=== PATIENT | female | born 1985 | race Caucasian/White ===

== ENCOUNTER 2019-03-10 10:16 | Outpatient (CLI) | payer SELFPAY ==
--- NOTE | 2019-03-10 10:26 | XR_ITS ---
WS: [id number] CHEST 2 VIEWS HISTORY: COUGH/TOBACCO ABUSE/dyspnea COMPARISON: 01/16/2015 Lungs: Hyperexpanded lungs with thickened interstitial markings centrally. No pneumonia. Cardiac size: Normal. Mediastinum/Aorta: Normal mediastinum. Bones: Normal. XR/XR chest 2V* [id number] IMPRESSION: Interstitial thickening centrally and mild hyperexpansion. Consider acute bronc hiolitis or exacerbation of reactive airways disease. No pneumonia.
== END 2019-03-10 10:17 | disposition home or self-care (01) ==
LOC: RAD 10:20
PROVIDERS: Family Provider Nurse Practitioner Family; PCP Nurse Practitioner Family; Visit Provider Nurse Practitioner Family
DX: Z72.0 Tobacco use (principal); R05 Cough; R06.00 Dyspnea, unspecified
CPT/HCPCS: 71046

== ENCOUNTER 2019-12-11 10:00 | Emergency (ER) | payer SELFPAY ==
[2019-12-11 10:14] VITALS: BP 110/59; PULSE 101; RESP 20; TEMP 37.1; O2SAT 97; BMI 17.9
--- NOTE | 2019-12-11 10:14 | XR_ITS ---
WS: [id number] XR chest 1V portable [id number] REASON FOR EXAM: dyspnea/cough FINDINGS: The chest is unchanged compared to previous examination of 03/10/2019. The heart and mediastinum are within normal limits. No active pulmonary parenchymal or pleural diseas e is noted. The bony thorax is unremarkable. XR/XR chest 1V portable [id number] IMPRESSION: No acute chest abnormality.
--- NOTE | 2019-12-11 10:15 | W.ED.SOB ---
HPI - SOB/Dyspnea General: Chief Complaint: Shortness of Breath/Dyspnea Stated Complaint: FEVER, SOB, R SIDE PAIN Time Seen by Provider: 12/11/19 10:08 History of Present Illness: HPI Narrative: 34-year-old female presents emergency room with complaint of shortness of breath fever and cough. Began over the last couple of days. Worse last night she did use an albuterol inhaler she has for her asthma that did not seem to help very much. She is hyperventilating on my arrival in the room. She denies any other long-term medical problems she has had some loose stools. Cough has become quite harsh to the point where she is pulled some muscles and has some point tenderness on the right side of her ribs. MD elicited complaint: shortness of breath and cough Pertinent past history: asthma Onset (ago): day(s) Context: recent illness Timing: constant Severity: moderate Exacerbating factors: coughing Relieving factors: rest Known history of: asthma Associated symptoms: Reports cough; Deny abdominal pain, chest congestion, chest pain, diaphoresis, dizziness, extremity pain, fever(s), hemoptysis, lightheadedness, myalgias, nausea, orthopnea, palpitations, paresthesias, polydipsia, polyuria, rash, sense of impending doom, syncope, vomiting or other Treatment prior to arrival: bronchodilator Review of Systems Const: Denies: fever(s) or diaphoresis ENMT: Denies: throat pain, ear or mastoid pain, nasal discharge or nasal congestion Card: Denies: chest pain, palpitations, lightheadedness, syncope or orthopnea Resp: Denies: hemoptysis or chest congestion GI: Denies: abdominal pain, nausea or vomiting : Denies: flank pain, difficulty voiding, dysuria, urinary frequency or urinary urgency Musc: Denies: extremity pain Skin/Breast: Denies: rash or pruritus Neuro: Denies: dizziness Endo: Denies: polyuria or polydipsia PFS ED PFSH: Medical History (Updated 12/11/19 @ 10:55 by Sam Chung DO) Asthma Physical Exam Const: COMMON NORMALS: no acute distress GENERAL APPEARANCE: cooperative and comfortable ORIENTATION/CONSCIOUSNESS: Yes awake, Yes oriented to person, Yes oriented to place and Yes oriented to time HENMT: COMMON NORMALS: normocephalic, atraumatic and hearing grossly normal bilaterally HEAD & SCALP: normocephalic and atraumatic Neck/C-Spine: COMMON NORMALS: no JVD Resp: COMMON NORMALS: normal respiratory effort, No retractions and No use of accessory muscles AUSCULTATION: wheezes (Mild) Cardio: COMMON NORMALS: no JVD, regular rate, regular rhythm and No murmurs present (Cardio) RATE: regular rate RHYTHM: regular rhythm GI: COMMON NORMALS: Soft to palpation and No hepatosplenomegaly present AUSCULTATION: Yes normoactive bowel sounds PALPATION: Yes Soft to palpation, No Tenderness to palpation present (GI), No Guarding due to palpation present (GI) and Yes No hepatosplenomegaly present Extremity: COMMON NORMALS: normal to inspection, capillary refill normal, no clubbing, cyanosis or edema, no calf tenderness and no pedal edema Neuro: SENSORIUM/ORIENTATION: Yes oriented to person, Yes oriented to place and Yes oriented to time Skin: COMMON NORMALS: no rashes or lesions noted GENERAL SKIN EXAM: no rashes or lesions noted Course Vital Signs: Vital signs: Vital Signs Temperature 98.7 F 12/11/19 10:14 Pulse Rate 98 12/11/19 11:22 Respiratory Rate 16 12/11/19 11:22 Blood Pressure 116/77 12/11/19 11:22 Pulse Oximetry 95 12/11/19 11:22 MDM - SOB/Dyspnea MDM Narrative: Medical decision making narrative: Patient is doing well respiratory rate settled down to normal she was hyperventilating when she first came in. We did swab her for COVID recommend she maintain quarantine until results are back. Continue to use albuterol PRN return if has further problems. Lab Data: Labs: Lab Results 12/11/19 Range/Units 10:34 Specimen Type Arterial Sample Site Radial, left ABG pH 7.52 H (7.35-7.45) ABG pCO2 25.9 L (35-45) mmHg ABG pO2 70.2 L (80.0-100.0) mmH g ABG HCO3 20.9 L (22-26) mmol/L ABG O2 Saturation 97.6 ABG Base Excess -0.5 (-2.0-2.0) mmol/ L Pradeep Test Pos A-a O2 Gradient 6.2 (5-10) mmHg Hematocrit 44.2 (37-47) % Hgb O2 Saturation 91.9 L (95-100) % Carboxyhemoglobin 5.0 (0.4-20.1) %THgb Methemoglobin 0.9 (0.4-1.5) % Total Hemoglobin 14.4 (12-16) g/dL Sodium 138.0 (131-143) mmol/L Potassium 3.6 (3.5-5.0) mmol/L Glucose 92.0 (70-115) mg/dL Ionized Calcium 1.2 (1.1-1.4) mmol/L O2 Delivery Device Room air FiO2 21.0 % Textile Machine Operator ID Cak Discharge Plan Discharge Patient Disposition: Home Clinical Impression: Asthma, Viral URI Condition: Stable Prescriptions: No Action No Known Home Medications RF: 0 Discharge Orders: Discharge Order (Routine); Ordered 12/11/19 Ordered By: Sam Chung Referrals: CLARITA HICKS FNP [Primary Care Provider] - Deb Ramirez FNP [Family Provider] - Discharge Diet: Usual diet Discharge Activity: Increase activity as tolerated Discharge Date/Time: 12/11/19 11:20 Coding Level of Care Code ED Barrel Stave Inspector for Chg Fwd Exam Comprehensive
[2019-12-11 10:45] LABS: ABG PCO2 25.9 mmHg (35-45); ABG PH Result 7.52 (7.35-7.45); Alveolar-Arterial Oxygen Gradi 6.2 mmHg (5-10); Arterial Blood Gas Hematocrit 44.2 % (37-47); Base Excess ABG -0.5 mmol/L (-2.0-2.0); Blood Gas Allen Test Pos; Blood Gas Operator Identificat CAK; Blood Gas Sample Site Radial, left; Blood Gas Sample Type Arterial; HCO3 ABG 20.9 mmol/L (22-26); HGB O2 Sat 91.9 % (95-100); Ionized Calcium Level - ABG 1.2 mmol/L (1.1-1.4); Methemoglobin 0.9 % (0.4-1.5); Oxygen Device ROOM AIR; Oxygen Saturation ABG 97.6; PO2 ABG 70.2 mmHg (80.0-100.0); Potassium Level - ABG 3.6 mmol/L (3.5-5.0); Total Hemoglobin 14.4 g/dL (12-16)
[2019-12-11 11:22] VITALS: BP 116/77; PULSE 98; RESP 16; O2SAT 95
[2019-12-13 01:32] LABS: Quest SARS-CoV-2 RNA NOT DETECTED (NOT DETECTED)
--- NOTE | 2019-12-13 13:55 | PC.NURSE ---
Pt called and notified of negative COVID result.
== END 2019-12-11 11:20 | disposition home or self-care (01) ==
PROVIDERS: Emergency Provider Family Medicine; Family Provider Nurse Practitioner Family; PCP Nurse Practitioner Family
DX: J06.9 Acute upper respiratory infection, unspecified (principal)
CPT/HCPCS: 12345; 36600; 71045; 80051; 82810; 83986; 87635; 99281; 99283

== ENCOUNTER 2022-07-23 16:14 | Emergency (ER) | payer MEDICAID, SELFPAY ==
[2022-07-23 16:19] VITALS: BP 109/76; PULSE 78; RESP 15; TEMP 36.7; O2SAT 96; BMI 17.3
--- NOTE | 2022-07-23 16:31 | USR_ITS ---
PROCEDURE INFORMATION: Exam: US Nonobstetric Pelvis; Complete Exam date and time: 07/23/2022 5:08 PM Age: 37 years old Clinical indication: Pelvic pain; Additional info: R pelvic pain TECHNIQUE: Imaging protocol: Transabdominal pelvic nonobstetric ultrasound. Complete exam. Real time ultrasound with image documentation. COMPARISON: US pelv w/transvag [id number] 01/10/2017 11:24 AM FINDINGS: Uterus: Uterus is normal. Endometrial stripe is normal. Right ovary/adnexa: Ovary is normal. No mass. Normal blood flow. Left ovary/adnexa: Ovary is normal. No mass. Normal blood flow. Intraperitoneal space: No intraperitoneal fluid. Urinary bladder: Normal. US/US pelv w/transvag [id number] IMPRESSION: No acute findings.
--- NOTE | 2022-07-23 16:33 | W.ED.ABDPA2 ---
Documented by User: Sam Chung DO 07/24/22 06:00 HPI - Abdominal Pain General: Chief Complaint: Abdominal Pain Stated Complaint: abd pains Time Seen by Provider: 07/23/22 16:25 Source: patient Mode of arrival: ambulatory History of Present Illness: 37-year-old female presents emergency room complaint of right-sided pelvic pain and cramping. Menstrual period began 2 days ago her menstrual periods are usually very regular. She has a history of ovarian cyst had one removed by laparoscopy in the past. She denies any fever sweats chills dysuria urgency or frequency heme dysuria no diarrhea she did have an episode of nausea and single episode of vomiting this morning. MD elicited complaint: other (Right pelvic pain) Pertinent past history: other Onset (ago): day(s) Pain Consistency: constant Location: Pelvis Severity: moderate Quality: cramping Exacerbating factors: nothing Relieving factors: nothing Associated Symptoms: Reports bloating and GI cramping; Denies anorexia, belching, change in bowel habits, change in stool character, chills, coffee ground emesis, constipation, diarrhea, dyspepsia, dysuria, excessive flatus, fever(s), heartburn, hematochezia, hematuria, hematemesis, fecal incontinence, loose stools, melena, nausea, poor appetite, syncope and vomiting Review of Systems Const: Denies: fever(s), chills, fatigue or malaise ENMT: Denies: throat pain, ear or mastoid pain, nasal discharge or nasal congestion Card: Denies: chest pain or syncope Resp: Denies: dyspnea, productive cough or non-productive cough GI: Reports: abdominal pain (Right-sided pelvic), bloating and GI cramping; Denies: nausea, vomiting, hematemesis, coffee ground emesis, heartburn, diarrhea, constipation, belching, excessive flatus, fecal incontinence, change in bowel habits, change in stool character, hematochezia or melena : Denies: dysuria, urinary frequency, urinary urgency or hematuria Skin/Breast: Denies: rash or pruritus [facility] ED PFSH: Medical History (Updated 07/23/22 @ 18:10 by Marshall Greenberg MD) Asthma Social History Smoking and tobacco status: current every day smoker cigarettes Packs smoked per day: 0.5 Alcohol intake: never Desire information about alcohol rehabilitation?: No Counseling given: No Substance/Drug Use: never Desire information about substance/drug rehabilitation?: No Counseling given: No Lives independently: Yes Household members: spouse Housing: House Marital status: Number of children: 2 Physical Exam Const: GENERAL APPEARANCE: cooperative and comfortable ORIENTATION/CONSCIOUSNESS: Yes awake, Yes oriented to person, Yes oriented to place and Yes oriented to time HENMT: COMMON NORMALS: normocephalic, atraumatic and hearing grossly normal bilaterally HEAD & SCALP: normocephalic and atraumatic Resp: COMMON NORMALS: normal respiratory effort, No retractions, No use of accessory muscles and clear to auscultation bilaterally AUSCULTATION: clear to auscultation bilaterally Cardio: COMMON NORMALS: regular rate, regular rhythm and No murmurs present (Cardio) RATE: regular rate RHYTHM: regular rhythm GI: COMMON NORMALS: No hepatosplenomegaly present AUSCULTATION: Yes normoactive bowel sounds PALPATION: Yes Tenderness to palpation present (GI) (Right pelvis), No Guarding due to palpation present (GI) and Yes No hepatosplenomegaly present Extremity: COMMON NORMALS: normal to inspection, capillary refill normal, no clubbing, cyanosis or edema, no calf tenderness and no pedal edema Neuro: SENSORIUM/ORIENTATION: Yes oriented to person, Yes oriented to place and Yes oriented to time Skin: COMMON NORMALS: no rashes or lesions noted GENERAL SKIN EXAM: no rashes or lesions noted Course Vital Signs: Vital signs: Vital Signs Temperature 98.0 F 07/23/22 16:19 Pulse Rate 78 07/23/22 16:19 Respiratory Rate 18 07/23/22 16:59 Blood Pressure 109/76 07/23/22 16:19 Pulse Oximetry 96 07/23/22 16:19 Oxygen Delivery Me thod Room Air 07/23/22 16:19 MDM - Abdominal Pain Medical Decision Making Read of pelvic ultrasound pending at change of shift. Care signed out to Dr. Greenberg at change of shift. See final notes for diagnosis and disposition. Patient presents with abdominal pain her pain is much improved here exam is benign ultrasound blood works normal she has no signs of appendicitis or acute surgical issues she has no signs of ovarian torsion she is stable for discharge she is to follow-up with PCP and return if worsening. Lab Data 07/23/22 16:51 07/23/22 16:51 Labs/Radiology: Radiology Impressions Pelvic/Transvag US 07/23/22 16:31 IMPRESSION: No acute findings. Laboratory Results WBC 8.5 10^3/uL (4.0-10.0) 07/23/22 16:51 RBC 4.93 10^6/uL (4.1-5.3) 07/23/22 16:51 Hgb 15.7 g/dL (11.5-15.3) H 07/23/22 16:51 Hct 46.4 % (37.0-47.0) 07/23/22 16:51 MCV 94.1 fl (81-99) 07/23/22 16:51 MCH 31.8 pg (28.0-34.0) 07/23/22 16:51 MCHC 33.8 g/dL (30.0-36.0) 07/23/22 16:51 RDW 12.5 % (12.1-15.1) 07/23/22 16:51 Plt Count 321 10^3/cmm (130-400) 07/23/22 16:51 MPV 10.0 fL (7.4-10.4) 07/23/22 16:51 Neut % (Auto) 61.0 % 07/23/22 16:51 Lymph % (Auto) 32.2 % 07/23/22 16:51 [place] % (Auto) 5.6 % 07/23/22 16:51 Eos % (Auto) 0.4 % 07/23/22 16:51 Baso % (Auto) 0.6 % 07/23/22 16:51 Neut # (Auto) 5.18 10^3/uL (1.8-7.7) 07/23/22 16:51 Lymph # (Auto) 2.7 10^3/uL (0.8-4.8) 07/23/22 16:51 [place] # (Auto) 0.5 10^3/uL (0.2-0.9) 07/23/22 16:51 Eos # (Auto) 0.0 10^3/uL (0.0-0.8) 07/23/22 16:51 Baso # (Auto) 0.1 10^3/uL (0.0-0.1) 07/23/22 16:51 Nucleated RBC % (auto) 0 % 07/23/22 16:51 Nucleated RBCs # 0.0 /100WBC 07/23/22 16:51 Sodium 140 mmol/L (136-145) 07/23/22 16:51 Potassium 4.1 mmol/L (3.5-5.1) 07/23/22 16:51 Chloride 104 mmol/L (98-107) 07/23/22 16:51 Carbon Dioxide 23 mmol/L (22-29) 07/23/22 16:51 Anion Gap 17.1 (5-19) 07/23/22 16:51 BUN 10 mg/dL (6-20) 07/23/22 16:51 Creatinine 0.5 mg/dL (0.5-0.9) 07/23/22 16:51 GFR Calculation 140.4 mL/min (90-130) H 07/23/22 16:51 Glucose 87 mg/dL (65-115) 07/23/22 16:51 Calculated Osmolality 288 mOsm/kg (285-295) 07/23/22 16:51 Calcium 9.3 mg/dL (8.5-10.5) 07/23/22 16:51 Total Bilirubin 0.5 mg/dL (0.15-1.2) 07/23/22 16:51 AST 15 U/L (0-32) 07/23/22 16:51 ALT < 5 U/L (0-33) 07/23/22 16:51 Alkaline Phosphatase 60 U/L (35-105) 07/23/22 16:51 Total Protein 8.2 g/dL (6.6-8.7) 07/23/22 16:51 Albumin 5.0 g/dL (3.5-5.2) 07/23/22 16:51 Globulin 3.2 g/dL (1.3-4.6) 07/23/22 16:51 HCG, Qual Negative (Negative) 07/23/22 16:51 Urine Color Yellow (Yellow) 07/23/22 16:51 Urine Appearance Clear (CLEAR) 07/23/22 16:51 Urine pH 6.5 (5-7) 05/18/23 16:51 Ur Specific [place] 1.015 (1.005-1.030) 07/23/22 16:51 Urine Protein Neg (Negative) 07/23/22 16:51 Urine Glucose (UA) Norm (Normal) 07/23/22 16:51 Urine Ketones Negative (Negative) 07/23/22 16:51 Urine Blood 3+ (Negative) H 07/23/22 16:51 Urine Nitrate Negative (Negative) 07/23/22 16:51 Urine Bilirubin Neg (Negative) 07/23/22 16:51 Urine Urobilinogen Neg mg/dL (Negative) 07/23/22 16:51 Ur Leukocyte Esterase Negative (Negative) 07/23/22 16:51 Urine RBC Rare /hpf (0-2) 07/23/22 16:51 Urine WBC None /hpf (0-5) 07/23/22 16:51 Ur Squamous Epith Cells 0-4 /hpf (0-5) H 07/23/22 16:51 Amorphous Sediment Not Reportable 07/23/22 16:51 Urine Bacteria None /hpf (NONE) 07/23/22 16:51 Discharge Plan Discharge Patient Disposition: Home Clinical Impression: Abdominal pain Condition: Stable Prescriptions: New hydrocodone-acetaminophen 5-325 mg tablet 1 tab PO Q6H PRN (Reason: pain) Qty: 14 0RF ondansetron 4 mg tablet,disintegrating 4 mg PO Q6H PRN (Reason: nausea and vomiting) Qty: 14 0RF No Action amoxicillin 875 mg tablet 875 mg PO BID Qty: 20 0RF albuterol sulfate 2.5 mg /3 mL (0.083 %) solution for nebulization 2.5 mg INHALATION QID PRN (Reason: shortness of breath or wheezing) 7 Days Qty: 75 0RF azithromycin [Zithromax Z-Rory] 250 mg tablet See Rx Instructions PO .COMPLEX Qty: 6 0RF Rx Instructions: take 500 mg today (day 1), then 250 mg for 4 days (days 2-5) PO prednisone 10 mg tablets,dose pack See Rx Instructions PO PER PKG DIR Qty: 21 0RF Rx Instructions: PO PER PKG DIR may use loose pills promethazine-DM 6.25-15 mg/5 mL syrup 5 ml PO Q6H PRN (Reason: cough) 7 Days Qty: 118 0RF Discharge Orders: Discharge ED (Routine); Ordered 07/23/22 Ordered By: Marshall Greenberg Referrals: Fiona Rivero [employer] LOUNGE ATTENDANT [Primary Care Provider] - 1-3 days Discharge Diet: Advance as tolerated Discharge Activity: Resume usual activity Patient Instructions: Abdominal Pain (ED), Opioid Safety Coding Level of Care Code ED Wharf Tally Clerk for Chg Fwd Documented by User: Marshall Greenberg MD 07/23/22 18:23 HPI - Abdominal Pain General: Chief Complaint: Abdominal Pain Stated Complaint: abd pains Time Seen by Provider: 07/23/22 16:25 [facility] ED PFSH: Medical History (Updated 07/23/22 @ 18:10 by Marshall Greenberg MD) Asthma Social History Smoking and tobacco status: current every day smoker cigarettes Packs smoked per day: 0.5 Alcohol intake: never Desire information about alcohol rehabilitation?: No Counseling given: No Substance/Drug Use: never Desire information about substance/drug rehabilitation?: No Counseling given: No Lives independently: Yes Household members: spouse Housing: House Marital status: Number of children: 2 Course Vital Signs: Vital signs: Vital Signs Temperature 98.0 F 07/23/22 16:19 Pulse Rate 78 07/23/22 16:19 Respiratory Rate 18 07/23/22 16:59 Blood Pressure 109/76 07/23/22 16:19 Pulse Oximetry 96 07/23/22 16:19 Oxygen Delivery Me thod Room Air 07/23/22 16:19 MDM - Abdominal Pain Medical Decision Making Patient presents with abdominal pain her pain is much improved here exam is benign ultrasound blood works normal she has no signs of appendicitis or acute surgical issues she has no signs of ovarian torsion she is stable for discharge she is to follow-up with PCP and return if worsening. Medical Records I reviewed the patient's medical records. Lab Data I reviewed the patient's lab results. 07/23/22 16:51 07/23/22 16:51 Labs/Radiology: Radiology Impressions Pelvic/Transvag US 07/23/22 16:31 IMPRESSION: No acute findings. Laboratory Results WBC 8.5 10^3/uL (4.0-10.0) 07/23/22 16:51 RBC 4.93 10^6/uL (4.1-5.3) 07/23/22 16:51 Hgb 15.7 g/dL (11.5-15.3) H 07/23/22 16:51 Hct 46.4 % (37.0-47.0) 07/23/22 16:51 MCV 94.1 fl (81-99) 07/23/22 16:51 MCH 31.8 pg (28.0-34.0) 07/23/22 16:51 MCHC 33.8 g/dL (30.0-36.0) 07/23/22 16:51 RDW 12.5 % (12.1-15.1) 07/23/22 16:51 Plt Count 321 10^3/cmm (130-400) 07/23/22 16:51 MPV 10.0 fL (7.4-10.4) 07/23/22 16:51 Neut % (Auto) 61.0 % 07/23/22 16:51 Lymph % (Auto) 32.2 % 07/23/22 16:51 [place] % (Auto) 5.6 % 07/23/22 16:51 Eos % (Auto) 0.4 % 07/23/22 16:51 Baso % (Auto) 0.6 % 07/23/22 16:51 Neut # (Auto) 5.18 10^3/uL (1.8-7.7) 07/23/22 16:51 Lymph # (Auto) 2.7 10^3/uL (0.8-4.8) 07/23/22 16:51 [place] # (Auto) 0.5 10^3/uL (0.2-0.9) 07/23/22 16:51 Eos # (Auto) 0.0 10^3/uL (0.0-0.8) 07/23/22 16:51 Baso # (Auto) 0.1 10^3/uL (0.0-0.1) 07/23/22 16:51 Nucleated RBC % (auto) 0 % 07/23/22 16:51 Nucleated RBCs # 0.0 /100WBC 07/23/22 16:51 Sodium 140 mmol/L (136-145) 07/23/22 16:51 Potassium 4.1 mmol/L (3.5-5.1) 07/23/22 16:51 Chloride 104 mmol/L (98-107) 07/23/22 16:51 Carbon Dioxide 23 mmol/L (22-29) 07/23/22 16:51 Anion Gap 17.1 (5-19) 07/23/22 16:51 BUN 10 mg/dL (6-20) 07/23/22 16:51 Creatinine 0.5 mg/dL (0.5-0.9) 07/23/22 16:51 GFR Calculation 140.4 mL/min (90-130) H 07/23/22 16:51 Glucose 87 mg/dL (65-115) 07/23/22 16:51 Calculated Osmolality 288 mOsm/kg (285-295) 07/23/22 16:51 Calcium 9.3 mg/dL (8.5-10.5) 07/23/22 16:51 Total Bilirubin 0.5 mg/dL (0.15-1.2) 07/23/22 16:51 AST 15 U/L (0-32) 07/23/22 16:51 ALT < 5 U/L (0-33) 07/23/22 16:51 Alkaline Phosphatase 60 U/L (35-105) 07/23/22 16:51 Total Protein 8.2 g/dL (6.6-8.7) 07/23/22 16:51 Albumin 5.0 g/dL (3.5-5.2) 07/23/22 16:51 Globulin 3.2 g/dL (1.3-4.6) 07/23/22 16:51 HCG, Qual Negative (Negative) 07/23/22 16:51 Urine Color Yellow (Yellow) 07/23/22 16:51 Urine Appearance Clear (CLEAR) 07/23/22 16:51 Urine pH 6.5 (5-7) 07/23/22 16:51 Ur Specific [place] 1.015 (1.005-1.030) 07/23/22 16:51 Urine Protein Neg (Negative) 07/23/22 16:51 Urine Glucose (UA) Norm (Normal) 07/23/22 16:51 Urine Ketones Negative (Negative) 07/23/22 16:51 Urine Blood 3+ (Negative) H 07/23/22 16:51 Urine Nitrate Negative (Negative) 07/23/22 16:51 Urine Bilirubin Neg (Negative) 07/23/22 16:51 Urine Urobilinogen Neg mg/dL (Negative) 07/23/22 16:51 Ur Leukocyte Esterase Negative (Negative) 07/23/22 16:51 Urine RBC Rare /hpf (0-2) 07/23/22 16:51 Urine WBC None /hpf (0-5) 07/23/22 16:51 Ur Squamous Epith Cells 0-4 /hpf (0-5) H 07/23/22 16:51 Amorphous Sediment Not Reportable 07/23/22 16:51 Urine Bacteria None /hpf (NONE) 07/23/22 16:51 Discharge Plan Discharge Patient Disposition: Home Clinical Impression: Abdominal pain Condition: Stable Prescriptions: New hydrocodone-acetaminophen 5-325 mg tablet 1 tab PO Q6H PRN (Reason: pain) Qty: 14 0RF ondansetron 4 mg tablet,disintegrating 4 mg PO Q6H PRN (Reason: nausea and vomiting) Qty: 14 0RF No Action amoxicillin 875 mg tablet 875 mg PO BID Qty: 20 0RF albuterol sulfate 2.5 mg /3 mL (0.083 %) solution for nebulization 2.5 mg INHALATION QID PRN (Reason: shortness of breath or wheezing) 7 Days Qty: 75 0RF azithromycin [Zithromax Z-Rory] 250 mg tablet See Rx Instructions PO .COMPLEX Qty: 6 0RF Rx Instructions: take 500 mg today (day 1), then 250 mg for 4 days (days 2-5) PO prednisone 10 mg tablets,dose pack See Rx Instructions PO PER PKG DIR Qty: 21 0RF Rx Instructions: PO PER PKG DIR may use loose pills promethazine-DM 6.25-15 mg/5 mL syrup 5 ml PO Q6H PRN (Reason: cough) 7 Days Qty: 118 0RF Discharge Orders: Discharge ED (Routine); Ordered 07/23/22 Ordered By: Marshall Greenberg Referrals: Fiona Rivero, [employer] LOUNGE ATTENDANT [Primary Care Provider] - 1-3 days Discharge Diet: Advance as tolerated Discharge Activity: Resume usual activity Patient Instructions: Abdominal Pain (ED), Opioid Safety Coding Level of Care Code ED Wharf Tally Clerk for Mariana Peters
[2022-07-23] MEDS: sodium chloride 0.9% 1,000 ML 999 ML IV (16:54)
[2022-07-23] MEDS: ketorolac 30 mg/mL INJ IVP (16:56)
[2022-07-23] MEDS: ondansetron 2 mg/ML SDV 2 mL 4 MG IVP (16:57)
[2022-07-23 16:59] VITALS: RESP 18
[2022-07-23] MEDS: morphine 4 mg/mL SDV 1 mL IVP (16:59)
[2022-07-23 17:14] LABS: Basophils # 0.1 10^3/uL (0.0-0.1); Basophils % 0.6 %; Eosinophils % 0.4 %; Hematocrit 46.4 % (37.0-47.0); Hemoglobin 15.7 g/dL (11.5-15.3); Lymphocytes # 2.7 10^3/uL (0.8-4.8); Lymphocytes % 32.2 %; Mean Corpuscular HGB Conc 33.8 g/dL (30.0-36.0); Mean Corpuscular Hemoglobin 31.8 pg (28.0-34.0); Mean Corpuscular Volume 94.1 fl (81-99); Monocytes # 0.5 10^3/uL (0.2-0.9); Monocytes % 5.6 %; Neutrophils # 5.18 10^3/uL (1.8-7.7); Nucleated Red Blood Cells % 0 %; Platelet Count 321 10^3/cmm (130-400); Red Blood Count 4.93 10^6/uL (4.1-5.3); Red Cell Distribution Width 12.5 % (12.1-15.1); White Blood Count 8.5 10^3/uL (4.0-10.0)
--- NOTE | 2022-07-23 17:14 | PC.NURSE ---
ASSUMED CARE AT 1714
[2022-07-23 17:31] LABS: HCG, Serum Qual Negative (Negative)
[2022-07-23 17:34] LABS: Alanine Aminotransferase < 5 U/L (0-33); Alkaline Phosphatase 60 U/L (35-105); Anion Gap 17.1 (5-19); Aspartate Amino Transferase 15 U/L (0-32); Blood Urea Nitrogen 10 mg/dL (6-20); Calcium 9.3 mg/dL (8.5-10.5); Carbon Dioxide 23 mmol/L (22-29); Chloride 104 mmol/L (98-107); Globulin 3.2 g/dL (1.3-4.6); Glomerular Filtration Rate 140.4 mL/min (90-130); Glucose 87 mg/dL (65-115); Osmolality Calculated 288 mOsm/kg (285-295); Potassium 4.1 mmol/L (3.5-5.1); Sodium 140 mmol/L (136-145); Total Bilirubin 0.5 mg/dL (0.15-1.2); Total Protein 8.2 g/dL (6.6-8.7)
[2022-07-23 17:49] LABS: Protein Urine Neg (Negative); Specific Gravity, Urine 1.015 (1.005-1.030); Urine Appearance Clear (CLEAR); Urine Color Yellow (Yellow); pH Urine 6.5 (5-7)
[2022-07-23 17:50] LABS: Add Urine Microscopic? YES; Bilirubin Urine Neg (Negative); Blood Urine 3+ (Negative); Glucose Urine UA Norm (Normal); Ketones Urine Negative (Negative); Leukocyte Esterase Urine Negative (Negative); Nitrate Urine Negative (Negative); Urobilinogen Urine Neg (Negative)
[2022-07-23 17:56] LABS: Add Urine Culture? No; RBC Urine RARE /hpf (0-2); Squamous Epithelial Cell Urine 0-4 /hpf (0-5)
== END 2022-07-23 18:37 | disposition home or self-care (01) ==
PROVIDERS: Family Medicine; Emergency Provider Emergency Medicine; PCP Nurse Practitioner Family
DX: R10.2 Pelvic and perineal pain (principal); F17.210 Nicotine dependence, cigarettes, uncomplicated
CPT/HCPCS: 36415; 76830; 76856; 80053; 81001; 84703; 85025; 96361; 96374; 96375; 99284; J1885; J2270; J2405; J7030

== ENCOUNTER → 2022-08-26 16:42 | Outpatient (BNVA) | payer MEDICAID, SELFPAY | PROVIDERS: PCP Nurse Practitioner Family; Visit Provider Obstetrics & Gynecology | DX: N92.1 Excessive and frequent menstruation with irregular cycle (principal) | CPT/HCPCS: 88305 ==

== ENCOUNTER 2023-02-22 12:52 | Emergency (ER) | payer MEDICAID, SELFPAY ==
--- NOTE | 2023-02-22 12:55 | XR_ITS ---
WS: [id number] Portable AP upright chest, 02/22/2023 Clinical Data: sob Comparison: Portable chest, 12/11/2019 Findings: No nodules, masses or effusions are seen. The heart is normal. The pulmonary vascularity is not increased. No pneumonia or pneumothorax is seen. The diaphragms are flattened. There is a decora tive item overlying the L3 vertebral body. Impression: Hyperinflation.
[2023-02-22 12:58] VITALS: BP 108/74; PULSE 81; RESP 16; TEMP 36.6; O2SAT 97; BMI 15.9
--- NOTE | 2023-02-22 13:26 | ED_ITS ---
HPI - SOB/Dyspnea 2 General: Chief Complaint: Shortness of Breath/Dyspnea Stated Complaint: SOB Time Seen by Provider: 02/22/23 13:23 Source: patient Mode of arrival: ambulatory Limitations: no limitations History of Present Illness: HPI Narrative: 37-year-old female states that she has h ad a cough along with slight dyspnea over the last 2 days states today started having increasing right-sided chest and neck pain especially with inspiration states pain sharp in nature rates it a 9 out of 10. Denies any pain with movement of her neck or arm she had no fevers. Associated symptoms: Reports chest pain; Deny abdominal pain, fever(s), nausea or vomiting Review of Systems 2 Const: Denies: fever(s) or chills Eyes: Denies: eye discomfort ENMT: Denies: throat pain or dental pain Card: Reports: chest pain Resp: Reports: dyspnea and non-productive cough GI: Denies: abdominal pain, nausea, vomiting or diarrhea : Denies: dysuria Musc: Denies: neck pain or back pain Skin/Breast: Denies: rash Neuro: Denies: headache(s) PFSH ED 2 PFSH: Medical History Asthma Family History Denies family history of Colon cancer Ovarian cancer Diabetes Heart disease Hypercholesteremia Breast cancer Hypertension Uterine cancer Thyroid disease Stroke Physical Exam 2 Const: COMMON NORMALS: no acute distress, patient oriented x3 and healthy appearing HENMT: COMMON NORMALS: normocephalic and atraumatic HEAD & SCALP: n ormocephalic and atraumatic Eye: COMMON NORMALS: Equal, round and reactive pupils present and EOMs intact bilaterally PUPIL: Yes Equal, round and reactive pupils present Neck/C-Spine: COMMON NORMALS: full ROM and supple Chest: COMMONS NORMALS: normal inspection of the chest and normal palpation of entire chest wall Resp: COMMON NORMALS: normal respiratory effort, No retractions, No use of accessory muscles and clear to auscultation bilaterally AUSCULTATION: clear to auscultation bilaterally Cardio: COMMON NORMALS: regular rate, regular rhythm and No murmurs present (Cardio) RATE: regular rate RHYTHM: regular rhythm GI: COMMON NORMALS: Normal to inspection, nondistended, normoactive bowel sounds present, Soft to palpation, non-tender and no masses PALPATION: Yes Soft to palpation Extremity: COMMON NORMALS: normal to inspection and full ROM Neuro: COMMON NORMALS: patient oriented x3, moves all extremities and no focal motor deficits Psych: COMMON NORMALS: mental status grossly normal, Normal thought process present and cooperative THOUGHT PROCESS: Normal thought process present Skin: COMMON NORMALS: no rashes or lesions noted and no wounds GENERAL SKIN EXAM: no rashes or lesions noted Course 2 Vital Signs: Vital signs: Vital Signs Temperature 97.8 F 02/22/23 12:58 Pulse Rate 71 02/22/23 15:31 Respiratory Rate 16 02/22/23 12:58 Blood Pressure 94/71 02/22/23 15:31 Pulse Oximetry 96 02/22/23 15:31 Oxygen Delivery Me thod Room Air 02/22/23 15:31 MDM - SOB/Dyspnea Medical Decision Making Patient presents here with cough along with shortness of breath she been having some sharp chest pains as well especially with inspiration likely pleurisy blood work here showed no acute findings a mild leukocytosis she has no signs of pneumonia D-dimer here is negative no signs of pulmonary embolism she is stable for discharge she is to follow-up with PCP and return if worsening. Medical Records I reviewed the patient's medical records. Lab Data I reviewed the patient's lab results. 02/22/23 13:38 02/22/23 13:38 Labs/Radiology: Laboratory Results WBC 17.38 10^3/uL (3.29-11.43) H 02/22/23 13:38 RBC 4.64 10^6/uL (3.85-5.65) 02/22/23 13:38 Hgb 15.00 g/dL (11.27-16.99) 02/22/23 13:38 Hct 44.2 % (36-47) 02/22/23 13:38 MCV 95.3 fl (85-98) 02/22/23 13:38 MCH 32.3 pg (27-33) 02/22/23 13:38 MCHC 33.9 g/dL (30-55) 02/22/23 13:38 RDW 12.3 % (12.1-15.1) 02/22/23 13:38 Plt Count 277 10^3/cmm (157-399) 02/22/23 13:38 MPV 9.9 fL (7.4-10.4) 02/22/23 13:38 Neut % (Auto) 84.6 % 02/22/23 13:38 Lymph % (Auto) 9.4 % 02/22/23 13:38 Louisa % (Auto) 5.4 % 02/22/23 13:38 Eos % (Auto) 0.1 % 02/22/23 13:38 Baso % (Auto) 0.2 % 02/22/23 13:38 Neut # (Auto) 14.70 10^3/uL (1.8-7.7) H 02/22/23 13:38 Lymph # (Auto) 1.6 10^3/uL (0.8-4.8) 02/22/23 13:38 Louisa # (Auto) 0.9 10^3/uL (0.2-0.9) 02/22/23 13:38 Eos # (Auto) 0.0 10^3/uL (0.0-0.8) 02/22/23 13:38 Baso # (Auto) 0.0 10^3/uL (0.0-0.1) 02/22/23 13:38 Nucleated RBC % (auto) 0 % 02/22/23 13:38 Nucleated RBCs # 0.0 /100WBC 02/22/23 13:38 D-Dimer 0.31 ug/mLFEU (0-0.59) 02/22/23 13:38 Sodium 135 mmol/L (136-145) L 02/22/23 13:38 Potassium 3.8 mmol/L (3.5-5.1) 02/22/23 13:38 Chloride 101 mmol/L (98-107) 02/22/23 13:38 Carbon Dioxide 25 mmol/L (22-29) 02/22/23 13:38 Anion Gap 12.8 (5-19) 02/22/23 13:38 BUN 8 mg/dL (6-20) 02/22/23 13:38 Creatinine 0.6 mg/dL (0.5-0.9) 02/22/23 13:38 GFR Calculation 113.8 mL/min (90-130) 02/22/23 13:38 Glucose 84 mg/dL (65-115) 02/22/23 13:38 Calculated Osmolality 278 mOsm/kg (285-295) L 02/22/23 13:38 Lactic Acid 0.9 mmol/L (0.5-2.2) 02/22/23 13:38 Calcium 9.4 mg/dL (8.5-10.5) 02/22/23 13:38 Total Bilirubin 0.3 mg/dL (0.15-1.2) 02/22/23 13:38 AST 16 U/L (0-32) 02/22/23 13:38 ALT 10 U/L (0-33) 02/22/23 13:38 Alkaline Phosphatase 62 U/L (35-105) 02/22/23 13:38 Troponin T Baseline < 6 ng/L (0-10) 02/22/23 13:38 Total Protein 7.8 g/dL (6.6-8.7) 02/22/23 13:38 Albumin 4.9 g/dL (3.5-5.2) 02/22/23 13:38 Globulin 2.9 g/dL (1.3-4.6) 02/22/23 13:38 Influenza Type A Ag negative (Negative) 02/22/23 13:47 Influenza Type B Ag negative (Negative) 02/22/23 13:47 SARS-CoV-2 Ag (Rapid) negative (Negative) 02/22/23 13:47 All radiology interpretation(s) finalized by discharge EKG Data EKG 1: I personally reviewed and interpreted this EKG as follows: EKG Interpretation Date: 02/22/23 EKG interpretation time: 13:31 Interpretation: nsr hr [address] or t wave abnormalities qrs 100 qtc 397 Discharge Plan Discharge Patient Disposition: Home Clinical Impression: Dyspnea, Chest pain Condition: Stable Prescriptions: New hydrocodone-acetaminophen 5-325 mg tablet 1 tab PO Q6H PRN (Reason: pain) Qty: 14 0RF Naprosyn 500 mg tablet 500 mg PO BID PRN (Reason: pain) Qty: 20 0RF No Action Mirena 21 mcg/24 hours (8 yrs) 52 mg intrauterine device 1 device intrauterine .5 YEARS albuterol sulfate 2.5 mg /3 mL (0.083 %) solution for nebulization 2.5 mg INHALATION QID PRN (Reason: shortness of breath or wheezing) 7 Days Qty: 75 0RF Women's Multivitamin 18 mg iron-400 mcg-500 mg Tablet 1 tab PO DAILY Discharge Orders: Discharge ED (Routine); Ordered 02/22/23 Ordered By: Marshall Greenberg Referrals: Fiona Rivero FNP [Primary Care Provider] - 1-3 days Discharge Diet: Advance as tolerated Discharge Activity: Resume usual activity Patient Instructions: Chest Pain (ED) Coding Level of Care Code ED [employer] Fitter Helper for Mariana Peters
--- NOTE | 2023-02-22 13:31 | ECG_ITS ---
[facility] Test Date: 2023-02-22 Pat Name: Radha Becerra Department: Room: Gender: Female Cda Teacher: : 1985 Requested By: Marshall Greenberg Order Number: [id number] Daryl MD: Heidi Jones M.D. Measurements Intervals [place] Rate: 80 P: 85 SD: 165 QRS: 81 QRSD: 100 T: 64 QT: 361 QTc: 418 Interpretive Statements SINUS RHYTHM POSSIBLE LEFT ATRIAL ENLARGEMENT [-0.1mV P-WAVE IN V1/V2] POSSIBLE RIGHT VENTRICULAR CONDUCTION DELAY [RSR (QR) IN V1/V2] Compared to ECG 08/31/2014 10:52:26 T-wave abnormality no longer present Electronically Signed On 02-22-2023 17:42:44 [employer] FARM SUPERVISOR by Heidi Jones M.D. [id number]
[2023-02-22] MEDS: ondansetron 2 mg/ML SDV 2 mL 4 MG IVP (13:39)
[2023-02-22] MEDS: morphine 4 mg/mL SDV 1 mL IVP (13:40)
[2023-02-22 13:47] LABS: Basophils % 0.2 %; Eosinophils % 0.1 %; Hematocrit 44.2 % (36-47); Lymphocytes # 1.6 10^3/uL (0.8-4.8); Lymphocytes % 9.4 %; Mean Corpuscular HGB Conc 33.9 g/dL (30-55); Mean Corpuscular Hemoglobin 32.3 pg (27-33); Mean Corpuscular Volume 95.3 fl (85-98); Mean Platelet Volume 9.9 fL (7.4-10.4); Monocytes # 0.9 10^3/uL (0.2-0.9); Monocytes % 5.4 %; Neutrophils % 84.6 %; Nucleated Red Blood Cells % 0 %; Platelet Count 277 10^3/cmm (157-399); Red Blood Count 4.64 10^6/uL (3.85-5.65); Red Cell Distribution Width 12.3 % (12.1-15.1); White Blood Count 17.38 10^3/uL (3.29-11.43)
[2023-02-22 13:58] LABS: D Dimer 0.31 ug/mLFEU (0-0.59)
[2023-02-22 14:03] LABS: Alanine Aminotransferase 10 U/L (0-33); Albumin Level 4.9 g/dL (3.5-5.2); Alkaline Phosphatase 62 U/L (35-105); Anion Gap 12.8 (5-19); Aspartate Amino Transferase 16 U/L (0-32); Blood Urea Nitrogen 8 mg/dL (6-20); Calcium 9.4 mg/dL (8.5-10.5); Carbon Dioxide 25 mmol/L (22-29); Chloride 101 mmol/L (98-107); Globulin 2.9 g/dL (1.3-4.6); Glomerular Filtration Rate 113.8 mL/min (90-130); Glucose 84 mg/dL (65-115); Osmolality Calculated 278 mOsm/kg (285-295); Potassium 3.8 mmol/L (3.5-5.1); Sodium 135 mmol/L (136-145); Total Bilirubin 0.3 mg/dL (0.15-1.2); Total Protein 7.8 g/dL (6.6-8.7)
[2023-02-22 14:04] LABS: Troponin(5th) Baseline < 6 ng/L (0-10)
[2023-02-22 14:49] LABS: Influenza A by IFA negative (Negative); Influenza B by IFA negative (Negative)
[2023-02-22 14:50] LABS: SARS Covid-2 Antigen negative (Negative)
[2023-02-22 14:57] LABS: Lactic Sepsis W/Reflex 0.9 mmol/L (0.5-2.2)
[2023-02-22] MEDS: sodium chloride 0.9% 1,000 ML 999 ML IV (14:58)
[2023-02-22] MEDS: ketorolac 30 mg/mL INJ IVP (15:14)
[2023-02-22] MEDS: HYDROcodone-acetaminophen 5-325 mg Tablet 1 TAB PO (15:14)
[2023-02-22 15:31] VITALS: BP 94/71; PULSE 71; O2SAT 96
== END 2023-02-22 15:38 | disposition home or self-care (01) ==
PROVIDERS: Emergency Provider Emergency Medicine; PCP Nurse Practitioner Family
DX: R07.9 Chest pain, unspecified (principal); R06.00 Dyspnea, unspecified; Z11.52 Encounter for screening for COVID-19
CPT/HCPCS: 71045; 80053; 83605; 84484; 85025; 85378; 87426; 87804; 93005; 96374; 96375; 99285; J1885; J2270; J2405; J7030

== ENCOUNTER → 2023-06-16 16:03 | Outpatient (BNVA) | payer MEDICAID, SELFPAY | PROVIDERS: PCP Nurse Practitioner Family; Visit Provider Nurse Practitioner Family | DX: R20.2 Paresthesia of skin (principal) | CPT/HCPCS: 80053; 82306; 82607; 84443; 85025 ==

== ENCOUNTER 2023-06-25 09:44 | Outpatient (CLI) | payer MEDICAID, SELFPAY ==
--- NOTE | 2023-06-25 09:53 | XR_ITS ---
WS: [id number] Exam: XR lumbar spine 2-3V* [id number] Date/Time of Exam: 06/25/2023 10:03 AM Reason For Exam: R20.2 - Paresthesia of skin No acute fracture or dislocation. Disc spaces are preserved. Slight dextroscoliosis that may be posit ional. Posterior elements appear normal. IMPRESSION: 1. No fracture or malalignment.
== END 2023-06-25 09:45 | disposition home or self-care (01) ==
LOC: RAD 09:45
PROVIDERS: PCP Nurse Practitioner Family; Visit Provider Nurse Practitioner Family
DX: R20.2 Paresthesia of skin (principal)
CPT/HCPCS: 72100

== ENCOUNTER 2023-08-23 10:12 | Emergency (ER) | payer MEDICAID, SELFPAY ==
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
[2023-08-23 10:18] VITALS: BP 120/77; PULSE 88; RESP 17; TEMP 36.8; O2SAT 98; BMI 16.9
--- NOTE | 2023-08-23 10:22 | CT_ITS ---
WS: [id number] CT THORACIC SPINE HISTORY: thoracic TECHNIQUE: Contiguous 2.0 mm axial images are reviewed to thoracic spine. Images are reformatted in s agittal and coronal planes. All CT scans at [facility] use at least one of these dose optimiz ation techniques: automated exposure control; mA and/or kV adjustment per patient size (includes targ eted exams where dose is matched to clinical indication); or iterative reconstruction. DLP: 556.86 mGy.cm COMPARISON: None available. Posterior thoracic alignment is normal. 12 rib-bearing vertebral bodies are identified. T12 ribs are rudimentary. Normal facet joint alignment. T1-2: Normal. T2-3: Normal. T3-4: Normal. T4-5: Normal. T5-6: Normal. T6-7: Normal. T7-8: Normal. T8-9: Normal. T9-10: Normal. T10-11: Normal. T11-12: Normal. Biapical fibrotic changes probably related to smoking. Paraseptal emphysema. Frothy secretions in the trachea from mucous. CT/CT thoracic spin wo con* [id number] IMPRESSION: No thoracic spine fracture.
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
[2023-08-23 10:44] VITALS: RESP 17
[2023-08-23] MEDS: morphine 4 mg/mL SDV 1 mL IVP (10:44)
[2023-08-23] MEDS: ondansetron 2 mg/ML SDV 2 mL 4 MG IVP (10:44)
[2023-08-23 12:16] VITALS: BP 101/47; PULSE 64; RESP 16; O2SAT 96
== END 2023-08-23 12:18 | disposition home or self-care (01) ==
PROVIDERS: Emergency Provider Physician Assistant; PCP Nurse Practitioner Family
DX: S39.92XA Unspecified injury of lower back, initial encounter (principal); V94.89XA Other water transport accident, initial encounter
CPT/HCPCS: 72128; 72131; 96374; 96375; 99285; J2270; J2405

== ENCOUNTER 2024-03-23 08:10 | Outpatient (CLI) | payer MEDICAID, SELFPAY ==
--- NOTE | 2024-03-23 08:15 | US_ITS ---
WS: [id number] Complete ABDOMINAL ULTRASOUND HISTORY: Abdominal Pain COMPARISON: None available. Liver: 13.2 cm in length. Normal size liver and echogenicity. No bile duct dilatation or mass. Portal Vein: Normal hepatopetal flow with monophasic waveform. Gallbladder: Normally distended gallbladder with no stones or wall thickening. CBD: 0.3 cm Pancreas: Normal size and echogenicity. Right kidney: 9.9 cm x 4.6 x 6.4 cm. Cortex:1.0 cm. Normal size and echogenicity. No hydronephrosis or mass. Left kidney: 8.2 cm x 3.6 cm x 4.1 cm. Cortex: 1.1 cm. RIGHT kidney is measuring small due to exclusion of the lower pole. Lower pole is obscured by bowel g as. Spleen: 8.5 cm. Normal size and echogenicity. Aorta and IVC: Unremarkable abdominal aorta and IVC. US/US abdomen complete* [id number] Impression: Normal complete abdomen ultrasound.
== END 2024-03-23 08:11 | disposition home or self-care (01) ==
LOC: RAD 08:12
PROVIDERS: PCP Nurse Practitioner Family; Visit Provider Nurse Practitioner Family
DX: E28.2 Polycystic ovarian syndrome (principal)
CPT/HCPCS: 76700

== ENCOUNTER 2024-11-15 12:05 | Outpatient (CLI) | payer MEDICAID, SELFPAY ==
--- NOTE | 2024-11-15 12:11 | XR_ITS ---
WS: [id number] Left foot, AP and lateral views, 11/15/2024 Clinical Data: LEFT GREAT TOE PAIN Comparison: None. Findings: No fractures or dislocations are seen. No bone destruction or erosion is noted. The joint spaces and soft tissues are normal. The left great toe shows no abnormalities. XR/XR foot LT 2V [id number] Impression: Negative left foot.
== END 2024-11-15 12:06 | disposition home or self-care (01) ==
LOC: RAD 12:07
PROVIDERS: PCP Nurse Practitioner Family; Visit Provider Nurse Practitioner Family
DX: M79.675 Pain in left toe(s) (principal)
CPT/HCPCS: 73620

== ENCOUNTER → 2024-12-07 09:08 | Outpatient (BNVA) | payer MEDICAID, SELFPAY | PROVIDERS: PCP Nurse Practitioner Family; Visit Provider Podiatrist Foot & Ankle Surgery | DX: M79.672 Pain in left foot (principal); Q66.12 Congenital talipes calcaneovarus, left foot; M77.41 Metatarsalgia, right foot; M77.42 Metatarsalgia, left foot | CPT/HCPCS: 36415; 73630; 80053; 85025; 85651; 86140; 86160; 86162; 86200; 86235; 86255; 86376; 86431 ==

== ENCOUNTER 2025-01-01 11:25 | Outpatient (CLI) | payer MEDICAID, SELFPAY ==
--- NOTE | 2025-01-01 11:45 | MRR_ITS ---
PROCEDURE INFORMATION: Exam: MR Left Lower Extremity Other Than Joint Without Contrast; Foot Exam date and time: 01/01/2025 11:41 AM Age: 39 years old Clinical indication: Pain is localized to the plantar aspect of the left forefoot and worsens with walking or toe-off; Additional info: Plantar plate injury, eliu magnet 2 mm slices TECHNIQUE: Imaging protocol: Magnetic resonance imaging of the left lower extremity without contrast. Exam focused on the foot. COMPARISON: CR XR foot LT min 3V* [id number] 12/07/2024 9:16 AM FINDINGS: Bones/joints: Normal osseous alignment. No acute fracture. Small 1st through 4th metatarsophalangeal joint effusions are present. No plantar plate tears are identified, with somewhat limited assessment secondary to the relatively large field of view. Small tibiotalar and posterior subtalar joint effusions are noted. LIGAMENTS: Lisfranc ligament: Unremarkable. No evidence of tear. TENDONS: Flexor tendons of foot: Unremarkable. No evidence of tear. Tibialis posterior tendon: Unremarkable as visualized. Peroneal tendons: Unremarkable as visualized. Extensor tendons of foot: Unremarkable. No evidence of tear. Tibialis anterior tendon: Unremarkable as visualized. Tarsal canal (Sinus tarsi): Unremarkable. Tarsal tunnel: Unremarkable. Soft tissues: Minimal subcutaneous edema along the plantar aspect of the foot at the level of the metatarsophalangeal joints is present. No discrete fluid collection. Plantar fascia: Unremarkable as visualized. MR/MR foot LT wo con* [id number] IMPRESSION: 1. No definitive evidence of plantar plate tear as clinically questioned. 2. Small 1st through 4th metatarsophalangeal joint effusions. 3. Small tibiotalar and posterior subtalar joint effusions. 4. Minimal plantar subcutaneous edema in the region of the metatarsophalangeal joint is noted with no discrete fluid collection. This appearance can be related to contusion, noninfectious inflammatory changes or cellulitis.
== END 2025-01-01 11:26 | disposition home or self-care (01) ==
LOC: RAD 11:28
PROVIDERS: PCP Nurse Practitioner Family; Visit Provider Podiatrist Foot & Ankle Surgery
DX: S99.922A Unspecified injury of left foot, initial encounter (principal); M25.475 Effusion, left foot; X58.XXXA Exposure to other specified factors, initial encounter; R60.9 Edema, unspecified
CPT/HCPCS: 73718

== ENCOUNTER → 2025-02-21 09:58 | Outpatient (BNVA) | payer MEDICAID, SELFPAY | PROVIDERS: PCP Nurse Practitioner Family; Visit Provider Podiatrist Foot & Ankle Surgery | DX: M06.9 Rheumatoid arthritis, unspecified (principal) | CPT/HCPCS: 36415; 85651; 86140; 86160; 86162; 86200; 86235; 86255; 86376; 86431 ==